=== PATIENT | male | born 1980 | race Caucasian/White ===

== ENCOUNTER 2021-07-13 15:55 | Emergency (ER) | payer SELFPAY ==
[2021-07-13 16:48] VITALS: BP 145/95; PULSE 77; TEMP 98.1; BMI 31.8
[2021-07-13] MEDS ORDERED: ACETAMINOPHEN 1000 MG/100 ML BAG IVPB ONE (16:48)
[2021-07-13] MEDS ORDERED: FAMOTIDINE 20 MG/50 ML IVPB 20 MG/50 ML MG IVPB ONE ×2 (16:58→17:29)
[2021-07-13] MEDS ORDERED: MAG HYDROX/AL HYDROX/SIMETH -MYLANTA- ORAL SUSPENSION PO ONE (16:58)
[2021-07-13] MEDS ORDERED: SODIUM CHLORIDE 0.9% 500 ML INFUS.BAG IV ONE (16:59)
[2021-07-13] MEDS ORDERED: ACETAMINOPHEN INJECTION 100 ML IVPB ONE (17:29)
[2021-07-13] MEDS ORDERED: MAG HYDROX/AL HYDROX/SIMETH 30 ML UNIT-DOSE CUP ONE (17:29)
[2021-07-13 18:35] LABS: BASO % 0.1 % (0-2.0); EOS % 0.1 % (0-4.5); HEMATOCRIT 44.1 % (35.4-49); HEMOGLOBIN 15.3 GM/dL (11.7-16.9); LYMPH % 6.7 % (8-40); MCH 31.6 pg (25.7-33.7); MCHC 34.8 g/dl (32.0-35.9); MEAN PLT VOLUME 8.8 fl (7.5-11.1); MONO % 5.9 % (3.8-10.2); NEUT % 87.2 % (42.8-82.8); PLATELET COUNT 238 10^3/uL (134-434); RBC 4.84 M/mm3 (4.00-5.60); RDW 12.7 % (11.9-15.9); WHITE BLOOD COUNT 12.2 K/mm3 (4.0-10.0)
[2021-07-13 18:47] LABS: CHLORIDE 104 mmol/L (98-107); SODIUM 138 mmol/L (136-145)
[2021-07-13 18:49] LABS: MAGNESIUM 2.2 mg/dL (1.8-2.4)
[2021-07-13 18:50] LABS: ALBUMIN 4.1 g/dl (3.4-5.0); ANION GAP 8 MMOL/L (8-16); BLOOD UREA NITROGEN 14.4 mg/dL (7-18); CO2 27 mmol/L (21-32); GLUCOSE,RANDOM 110 mg/dL (74-106); LIPASE 205 U/L (73-393)
[2021-07-13 18:52] LABS: CREATININE 1.3 mg/dL (0.55-1.3); SGOT/AST 68 U/L (15-37); SGPT/ALT 37 U/L (13-61)
[2021-07-13 18:54] LABS: TOT PROT 7.4 g/dl (6.4-8.2)
[2021-07-13 18:56] LABS: ALK PHOS 106 U/L (45-117)
[2021-07-13 19:31] LABS: ERYTHROCYTE SEDIMENTATION RATE 9 mm/hr (0-10)
== END 2021-07-13 20:46 | disposition home or self-care (01) ==
LOC: JER 15:55
PROC: 3E033GC Introduction of Other Therapeutic Substance into Peripheral Vein, Percutaneous Approach (ICD-10-PCS; principal; 2021-07-13)
DX: R07.9 Chest pain, unspecified (principal)
CPT/HCPCS: 36415; 71045-TC-FY; 80053; 82550; 83690; 83735; 84484; 85025; 85651; 86140; 93005; 93010; 99285-25

== ENCOUNTER 2022-03-11 08:36 | Inpatient (IN) | payer OTHER ==
[2022-03-11 08:49] VITALS: RESP 18
[2022-03-11] MEDS ORDERED: SODIUM CHLORIDE 0.9% 500 ML INFUS.BAG IV ONE (08:55)
[2022-03-11] MEDS ORDERED: KETOROLAC TROMETHAMINE 15 MG/ML VIAL IVPUSH ONE (08:55)
[2022-03-11] MEDS ORDERED: KETOROLAC TROMETHAMINE 15 MG/ML VIAL ONE (09:10)
[2022-03-11 09:14] LABS: BASO % 0.3 % (0-2.0); EOS % 0.1 % (0-4.5); HEMATOCRIT 47.4 % (35.4-49); HEMOGLOBIN 16.5 GM/dL (11.7-16.9); LYMPH % 5.1 % (8-40); MCH 32.5 pg (25.7-33.7); MCHC 34.9 g/dl (32.0-35.9); MEAN CELL VOLUME 93.3 fl (80-96); MEAN PLT VOLUME 8.3 fl (7.5-11.1); MONO % 6.1 % (3.8-10.2); NEUT % 88.4 % (42.8-82.8); PLATELET COUNT 288 10^3/uL (134-434); RBC 5.09 M/mm3 (4.00-5.60); RDW 13.2 % (11.9-15.9)
[2022-03-11 09:40] LABS: CHLORIDE 103 mmol/L (98-107); SODIUM 142 mmol/L (136-145)
[2022-03-11 09:43] LABS: ALBUMIN 4.5 g/dl (3.4-5.0); ANION GAP 11 MMOL/L (8-16); CALCIUM 9.4 mg/dL (8.5-10.1); CO2 29 mmol/L (21-32); GLUCOSE,RANDOM 107 mg/dL (74-106); MAGNESIUM 2.3 mg/dL (1.8-2.4)
[2022-03-11 09:44] LABS: BLOOD UREA NITROGEN 6.2 mg/dL (7-18)
[2022-03-11 09:45] LABS: SGOT/AST 72 U/L (15-37); SGPT/ALT 96 U/L (13-61)
[2022-03-11 09:48] LABS: TOT PROT 7.6 g/dl (6.4-8.2)
[2022-03-11 09:49] LABS: ALK PHOS 117 U/L (45-117)
[2022-03-11 09:55] LABS: LIPASE > 30000 U/L (73-393)
[2022-03-11] MEDS ORDERED: morphine CARPU-JECT 4 MG/1 ML DISP.SYRIN IVPUSH ONE (10:41)
[2022-03-11] MEDS ORDERED: ACETAMINOPHEN 1000 MG/100 ML BAG IVPB PRN (11:08)
[2022-03-11] MEDS: LACTATED RINGERS SOLUTION 1,000 ML IV SCH ×2 (11:13→23:21)
[2022-03-11] MEDS ORDERED: morphine SULFATE 4 MG/ML VIAL ONE (11:15)
[2022-03-11] MEDS ORDERED: LORazepam 2 MG/ML SDV VIAL IVPUSH PRN (11:40)
[2022-03-11 12:58] VITALS: BMI 30.4
[2022-03-11 14:19] LABS: CHOLESTEROL 251 mg/dL (50-200)
[2022-03-11 14:20] LABS: LDL CHOLESTEROL (ONLY SJRH) 155 mg/dL (5-100); TRIGLYCERIDES 295 mg/dL (0-150)
[2022-03-11 14:23] LABS: HDL CHOLESTEROL 51 mg/dL (40-60)
[2022-03-11 22:40] LABS: URINE APPEARANCE CLEAR; URINE BILIRUBIN NEGATIVE (NEGATIVE); URINE COLOR YELLOW; URINE GLUCOSE (UA) NEGATIVE (NEGATIVE); URINE KETONE TRACE (NEGATIVE); URINE LEUK ESTERASE NEGATIVE (NEGATIVE); URINE NITRITE NEGATIVE (NEGATIVE); URINE PROTEIN NEGATIVE (NEGATIVE)
[2022-03-12] MEDS: LACTATED RINGERS SOLUTION 1,000 ML IV SCH ×3 (06:06→19:47)
[2022-03-12] MEDS ORDERED: FOLIC ACID INJECTION - 1 MG, THIAMINE HCL 100 MG, MULTIVIT INJECTION ADULT 10 ML in SOD... IVPB ONE (09:00)
[2022-03-12 10:23] LABS: BASO % 0.3 % (0-2.0); EOS % 3.8 % (0-4.5); HEMATOCRIT 40.1 % (35.4-49); HEMOGLOBIN 13.7 GM/dL (11.7-16.9); LYMPH % 14.8 % (8-40); MCH 31.9 pg (25.7-33.7); MCHC 34.1 g/dl (32.0-35.9); MEAN CELL VOLUME 93.5 fl (80-96); MEAN PLT VOLUME 8.6 fl (7.5-11.1); MONO % 8.1 % (3.8-10.2); PLATELET COUNT 231 10^3/uL (134-434); RBC 4.28 M/mm3 (4.00-5.60); RDW 13.5 % (11.9-15.9)
[2022-03-12 10:46] LABS: CALCIUM 8.9 mg/dL (8.5-10.1)
[2022-03-12 10:47] LABS: MAGNESIUM 1.9 mg/dL (1.8-2.4)
[2022-03-12 10:48] LABS: CREATININE 0.9 mg/dL (0.55-1.3); PHOSPHOROUS 1.8 mg/dL (2.5-4.9)
[2022-03-12 10:49] LABS: BILIRUBIN,TOTAL 1.4 mg/dL (0.2-1)
[2022-03-12 10:50] LABS: TOT PROT 5.6 g/dl (6.4-8.2)
[2022-03-12] MEDS: THIAMINE HCL 100 MG TABLET (FP) PO SCH (10:52)
[2022-03-12] MEDS: MULTIVITAMINS (DAILY MVI) TABLET (FP) PO SCH (10:53)
[2022-03-12 11:10] LABS: ALBUMIN 3.2 g/dl (3.4-5.0)
[2022-03-12] MEDS ORDERED: LORazepam 2 MG/ML SDV VIAL IVPUSH PRN (16:11)
[2022-03-13 08:52] LABS: HEMATOCRIT 35.8 % (35.4-49); HEMOGLOBIN 12.4 GM/dL (11.7-16.9); MCH 32.3 pg (25.7-33.7); MCHC 34.7 g/dl (32.0-35.9); MEAN PLT VOLUME 8.6 fl (7.5-11.1); PLATELET COUNT 206 10^3/uL (134-434); RBC 3.84 M/mm3 (4.00-5.60); RDW 13.2 % (11.9-15.9); WHITE BLOOD COUNT 7.2 K/mm3 (4.0-10.0)
[2022-03-13] MEDS: MULTIVITAMINS (DAILY MVI) TABLET (FP) PO SCH (09:29)
[2022-03-13] MEDS: LACTATED RINGERS SOLUTION 1,000 ML IV SCH ×3 (09:29→21:31)
[2022-03-13] MEDS: THIAMINE HCL 100 MG TABLET (FP) PO SCH (09:29)
[2022-03-13 09:59] LABS: ALBUMIN 2.9 g/dl (3.4-5.0); BLOOD UREA NITROGEN 5.1 mg/dL (7-18)
[2022-03-13 10:00] LABS: CALCIUM 8.8 mg/dL (8.5-10.1)
[2022-03-13 10:02] LABS: CREATININE 0.8 mg/dL (0.55-1.3)
[2022-03-13 10:06] LABS: BILIRUBIN,TOTAL 0.9 mg/dL (0.2-1); TOT PROT 5.3 g/dl (6.4-8.2)
[2022-03-13] MEDS: PANTOPRAZOLE 40 MG TABLET PO SCH (14:55)
[2022-03-14] MEDS: LACTATED RINGERS SOLUTION 1,000 ML IV SCH ×2 (01:26→05:34)
[2022-03-14] MEDS: THIAMINE HCL 100 MG TABLET (FP) PO SCH (10:02)
[2022-03-14] MEDS: PANTOPRAZOLE 40 MG TABLET PO SCH (10:03)
[2022-03-14] MEDS: MULTIVITAMINS (DAILY MVI) TABLET (FP) PO SCH (10:03)
[2022-03-14 10:06] LABS: CALCIUM 8.5 mg/dL (8.5-10.1)
[2022-03-14 10:07] LABS: BLOOD UREA NITROGEN 5.2 mg/dL (7-18)
[2022-03-14 10:08] LABS: PHOSPHOROUS 2.5 mg/dL (2.5-4.9)
[2022-03-14 10:10] LABS: BILIRUBIN,TOTAL 0.9 mg/dL (0.2-1); CREATININE 0.8 mg/dL (0.55-1.3); TOT PROT 5.6 g/dl (6.4-8.2)
[2022-03-14 11:43] LABS: BASO % 1.4 % (0-2.0); EOS % 6.1 % (0-4.5); HEMATOCRIT 35.5 % (35.4-49); HEMOGLOBIN 12.5 GM/dL (11.7-16.9); MCH 32.8 pg (25.7-33.7); MCHC 35.2 g/dl (32.0-35.9); MEAN CELL VOLUME 93.2 fl (80-96); MEAN PLT VOLUME 8.6 fl (7.5-11.1); MONO % 7.8 % (3.8-10.2); NEUT % 65.7 % (42.8-82.8); PLATELET COUNT 199 10^3/uL (134-434); RBC 3.81 M/mm3 (4.00-5.60); RDW 13.2 % (11.9-15.9); WHITE BLOOD COUNT 6.6 K/mm3 (4.0-10.0)
[2022-03-14 12:27] VITALS: BP 118/73; PULSE 67; TEMP 98
== END 2022-03-14 15:00 | disposition home or self-care (01) | DRG 282 ==
LOC: JER 08:36 → JERBED 11:02 → J6S 12:01
PROVIDERS: ADMIT Internal Medicine; ATTEND Internal Medicine
DX: K85.20 Alcohol induced acute pancreatitis without necrosis or infection (principal); K80.20 Calculus of gallbladder without cholecystitis without obstruction; F10.20 Alcohol dependence, uncomplicated
CPT/HCPCS: 0241U-QW; 36415; 71045-TC-FY; 74176-TC; 76705-TC; 80053; 80061; 80307; 81003; 83036; 83690; 83735; 84100; 84443; 84484; 85025; 85027; 87040; 87086; 93005; 93010; 99285-25

== ENCOUNTER 2022-04-25 01:03 | Emergency (ER) | payer OTHER ==
[2022-04-25 01:20] VITALS: BP 130/80; PULSE 75; RESP 18; TEMP 97.6; BMI 27.1
[2022-04-25] MEDS ORDERED: morphine CARPU-JECT 2 MG/1 ML DISP.SYRIN IVPUSH ONE (01:20)
[2022-04-25] MEDS ORDERED: SODIUM CHLORIDE 0.9% 500 ML INFUS.BAG IV ONE (01:20)
[2022-04-25 01:43] LABS: BASO % 1.2 % (0-2.0); EOS % 2.2 % (0-4.5); HEMATOCRIT 45.6 % (35.4-49); HEMOGLOBIN 15.3 GM/dL (11.7-16.9); LYMPH % 36.6 % (8-40); MCH 30.7 pg (25.7-33.7); MCHC 33.6 g/dl (32.0-35.9); MEAN CELL VOLUME 91.3 fl (80-96); MEAN PLT VOLUME 8.7 fl (7.5-11.1); PLATELET COUNT 227 10^3/uL (134-434); RDW 12.9 % (11.9-15.9); WHITE BLOOD COUNT 5.7 K/mm3 (4.0-10.0)
[2022-04-25 02:04] LABS: ALBUMIN 3.8 g/dl (3.4-5.0); BLOOD UREA NITROGEN 10.5 mg/dL (7-18)
[2022-04-25 02:07] LABS: CREATININE 1.2 mg/dL (0.55-1.3)
[2022-04-25 02:08] LABS: BILIRUBIN,TOTAL 0.4 mg/dL (0.2-1); TOT PROT 6.9 g/dl (6.4-8.2)
== END 2022-04-25 02:49 | disposition home or self-care (01) ==
LOC: JER 01:03
PROC: 3E033NZ Introduction of Analgesics, Hypnotics, Sedatives into Peripheral Vein, Percutaneous Approach (ICD-10-PCS; principal; 2022-04-25)
DX: R10.13 Epigastric pain (principal)
CPT/HCPCS: 36415; 80053; 83690; 84484; 85025; 93005; 93010; 99285-25

== ENCOUNTER 2022-04-26 22:14 | Emergency (ER) | payer OTHER ==
[2022-04-26 22:38] VITALS: BP 116/84; PULSE 82; RESP 17; TEMP 99; BMI 27.1
[2022-04-27] MEDS ORDERED: ACETAMINOPHEN 325 MG TABLET (FP) PO ONE (02:14)
[2022-04-27] MEDS ORDERED: ACETAMINOPHEN 325 MG TABLET (FP) ONE (02:21)
[2022-04-27 02:50] LABS: BASO % 0.4 % (0-2.0); EOS % 1.2 % (0-4.5); HEMATOCRIT 45.6 % (35.4-49); HEMOGLOBIN 15.4 GM/dL (11.7-16.9); LYMPH % 21.8 % (8-40); MCH 30.6 pg (25.7-33.7); MCHC 33.8 g/dl (32.0-35.9); MEAN CELL VOLUME 90.6 fl (80-96); MONO % 10.1 % (3.8-10.2); NEUT % 66.5 % (42.8-82.8); PLATELET COUNT 241 10^3/uL (134-434); RBC 5.03 M/mm3 (4.00-5.60); RDW 12.5 % (11.9-15.9); WHITE BLOOD COUNT 7.1 K/mm3 (4.0-10.0)
[2022-04-27 03:17] LABS: CALCIUM 9.3 mg/dL (8.5-10.1)
[2022-04-27 03:18] LABS: BLOOD UREA NITROGEN 7.7 mg/dL (7-18)
[2022-04-27 03:21] LABS: CREATININE 1.1 mg/dL (0.55-1.3)
[2022-04-27 03:22] LABS: BILIRUBIN,TOTAL 4.6 mg/dL (0.2-1); TOT PROT 7.1 g/dl (6.4-8.2)
== END 2022-04-27 04:21 | disposition left against medical advice (07) ==
LOC: JER 22:14
DX: R10.13 Epigastric pain (principal)
CPT/HCPCS: 36415; 80053; 83690; 85025; 99283-25

== ENCOUNTER 2022-04-27 08:28 | Inpatient (IN) | payer OTHER ==
[2022-04-27 08:32] VITALS: BMI 27.1
[2022-04-27] MEDS ORDERED: ACETAMINOPHEN 1000 MG/100 ML BAG IVPB ONE (10:10)
[2022-04-27] MEDS ORDERED: ONDANSETRON 4 MG/2 ML VIAL IVPUSH ONE (10:11)
[2022-04-27] MEDS ORDERED: LACTATED RINGERS SOLUTION 1000 ML INFUS.BAG IV ONE (10:15)
[2022-04-27] MEDS ORDERED: ACETAMINOPHEN INJECTION 100 ML IVPB ONE (12:12)
[2022-04-27] MEDS ORDERED: ONDANSETRON 4 MG/2 ML VIAL ONE (12:12)
[2022-04-27 13:29] LABS: BASO % 0.1 % (0-2.0); EOS % 0.1 % (0-4.5); HEMATOCRIT 49.6 % (35.4-49); HEMOGLOBIN 16.2 GM/dL (11.7-16.9); LYMPH % 5.4 % (8-40); MCH 30.2 pg (25.7-33.7); MCHC 32.8 g/dl (32.0-35.9); MEAN CELL VOLUME 92.3 fl (80-96); MEAN PLT VOLUME 9.5 fl (7.5-11.1); MONO % 5.7 % (3.8-10.2); NEUT % 88.7 % (42.8-82.8); PLATELET COUNT 236 10^3/uL (134-434); RBC 5.37 M/mm3 (4.00-5.60); RDW 12.8 % (11.9-15.9); WHITE BLOOD COUNT 11.1 K/mm3 (4.0-10.0)
[2022-04-27 13:58] LABS: CALCIUM 10.4 mg/dL (8.5-10.1)
[2022-04-27 13:59] LABS: ALBUMIN 4.2 g/dl (3.4-5.0); BLOOD UREA NITROGEN 8.9 mg/dL (7-18)
[2022-04-27 14:02] LABS: BILIRUBIN,DIRECT 2.7 mg/dL (0.0-0.2)
[2022-04-27 14:04] LABS: BILIRUBIN,TOTAL 6.9 mg/dL (0.2-1); TOT PROT 7.5 g/dl (6.4-8.2)
[2022-04-27 14:14] LABS: CREATININE 1.2 mg/dL (0.55-1.3)
[2022-04-27] MEDS ORDERED: CEFTRIAXONE 1 MG in DEXTROSE 5%-WATER - 50 ML IVPB ONE (14:49)
[2022-04-27] MEDS ORDERED: LACTATED RINGERS SOLUTION 1,000 ML/1,000 ML INFUS.BAG IV SCH ×3 (15:00→18:45)
[2022-04-27] MEDS ORDERED: PIPERACILLIN/TAZOB 3.375 GM 3.375 GM in DEXTROSE 5%-WATER - 50 ML IVPB SCH ×2 (15:00→18:00)
[2022-04-27] MEDS: PIPERACILLIN/TAZOB 3.375 GM 3.375 GM in DEXTROSE 5%-WATER - 50 ML IVPB SCH (15:00)
[2022-04-27] MEDS ORDERED: PIPERACILLIN/TAZOB 4.5 GM 4.5 GM/100 ML BAG IVPB ONE (15:04)
[2022-04-27] MEDS ORDERED: PIPERACILLIN/TAZOB 3.375 GM 3.375 GM/50 ML BAG IVPB ONE (15:17)
[2022-04-27] MEDS ORDERED: FENTANYL CITRATE/PF 50 MCG/ML VIAL ONE ×2 (15:46→15:48)
[2022-04-27] MEDS ORDERED: INDOMETHACIN 50 MG RECTAL SUPPOSITORY PR ONE (16:00)
[2022-04-27] MEDS ORDERED: IOHEXOL 300 MG/ML INFUS..BTL IV ONE (16:00)
[2022-04-27] MEDS ORDERED: LACTATED RINGERS SOLUTION 1,000 ML IV SCH ×2 (16:00→16:45)
[2022-04-27 18:42] LABS: INR 1.14 (0.83-1.09); PROTHROMBIN TIME (PATIENT) 13.1 SEC (9.7-13.0)
[2022-04-27] MEDS ORDERED: CEFTRIAXONE 1 GM in DEXTROSE 5%-WATER - 50 ML IVPB ONE (19:15)
[2022-04-27] MEDS ORDERED: ACETAMINOPHEN 325 MG TABLET (FP) PO PRN (22:34)
[2022-04-27] MEDS ORDERED: MELATONIN 5 MG TABLETS PO ONE (22:36)
[2022-04-27] MEDS: ACETAMINOPHEN 1000 MG/100 ML BAG IVPB PRN (23:16)
[2022-04-28] MEDS ORDERED: LACTATED RINGERS SOLUTION 1,000 ML/1,000 ML INFUS.BAG IV SCH
[2022-04-28] MEDS: PIPERACILLIN/TAZOB 3.375 GM 3.375 GM in DEXTROSE 5%-WATER - 50 ML IVPB SCH ×3 (02:12→18:41)
[2022-04-28] MEDS: ONDANSETRON 4 MG/2 ML VIAL IVPUSH PRN (02:24)
[2022-04-28] MEDS: ACETAMINOPHEN 1000 MG/100 ML BAG IVPB PRN (09:29)
[2022-04-28 11:38] LABS: BASO % 0.2 % (0-2.0); EOS % 0.4 % (0-4.5); HEMATOCRIT 39.9 % (35.4-49); HEMOGLOBIN 13.5 GM/dL (11.7-16.9); LYMPH % 13.3 % (8-40); MCH 30.4 pg (25.7-33.7); MCHC 33.9 g/dl (32.0-35.9); MEAN CELL VOLUME 89.6 fl (80-96); MEAN PLT VOLUME 8.7 fl (7.5-11.1); MONO % 9.4 % (3.8-10.2); NEUT % 76.7 % (42.8-82.8); PLATELET COUNT 192 10^3/uL (134-434); RBC 4.46 M/mm3 (4.00-5.60); RDW 12.9 % (11.9-15.9); WHITE BLOOD COUNT 10.7 K/mm3 (4.0-10.0)
[2022-04-28 12:09] LABS: BLOOD UREA NITROGEN 9.1 mg/dL (7-18); MAGNESIUM 1.9 mg/dL (1.8-2.4)
[2022-04-28 12:11] LABS: BILIRUBIN,DIRECT 0.7 mg/dL (0.0-0.2); CREATININE 0.9 mg/dL (0.55-1.3); PHOSPHOROUS 2.5 mg/dL (2.5-4.9); TOT PROT 5.8 g/dl (6.4-8.2)
[2022-04-28 12:14] LABS: BILIRUBIN,TOTAL 2.2 mg/dL (0.2-1)
[2022-04-28 12:15] LABS: ALBUMIN 3.3 g/dl (3.4-5.0); CALCIUM 8.4 mg/dL (8.5-10.1)
[2022-04-28] MEDS ORDERED: POTASSIUM CHLORIDE TABS 20 MEQ TABLET.ER (FP) PO ONE (14:15)
[2022-04-28] MEDS: LACTATED RINGERS SOLUTION 1,000 ML/1,000 ML INFUS.BAG IV SCH (14:26)
[2022-04-28] MEDS: HYDROmorphone HCl 2 MG/ML VIAL IVPUSH PRN (18:40)
[2022-04-28] MEDS ORDERED: ACETAMINOPHEN 1000 MG/100 ML BAG IVPB ONE (20:59)
[2022-04-29] MEDS: HYDROmorphone HCl 2 MG/ML VIAL IVPUSH PRN ×2 (00:32→06:04)
[2022-04-29] MEDS: LACTATED RINGERS SOLUTION 1,000 ML/1,000 ML INFUS.BAG IV SCH ×3 (01:00→16:00)
[2022-04-29] MEDS: PIPERACILLIN/TAZOB 3.375 GM 3.375 GM in DEXTROSE 5%-WATER - 50 ML IVPB SCH ×3 (02:11→17:33)
[2022-04-29] MEDS: HYDROmorphone HCl 2 MG/ML VIAL IVPB PRN ×2 (09:03→20:43)
[2022-04-29 11:08] LABS: BASO % 0.6 % (0-2.0); EOS % 1.4 % (0-4.5); HEMATOCRIT 40.7 % (35.4-49); HEMOGLOBIN 13.5 GM/dL (11.7-16.9); LYMPH % 13.5 % (8-40); MCH 30.3 pg (25.7-33.7); MEAN CELL VOLUME 91.6 fl (80-96); MEAN PLT VOLUME 9.4 fl (7.5-11.1); MONO % 9.9 % (3.8-10.2); NEUT % 74.6 % (42.8-82.8); PLATELET COUNT 184 10^3/uL (134-434); RBC 4.45 M/mm3 (4.00-5.60); RDW 12.6 % (11.9-15.9); WHITE BLOOD COUNT 11.2 K/mm3 (4.0-10.0)
[2022-04-29 11:30] LABS: ALBUMIN 3.2 g/dl (3.4-5.0); CALCIUM 8.5 mg/dL (8.5-10.1)
[2022-04-29 11:31] LABS: ALBUMIN 3.2 g/dl (3.4-5.0); MAGNESIUM 1.9 mg/dL (1.8-2.4)
[2022-04-29 11:33] LABS: BILIRUBIN,DIRECT 0.5 mg/dL (0.0-0.2)
[2022-04-29 11:35] LABS: BILIRUBIN,TOTAL 1.5 mg/dL (0.2-1); BILIRUBIN,TOTAL 1.6 mg/dL (0.2-1); CREATININE 0.8 mg/dL (0.55-1.3); PHOSPHOROUS 1.9 mg/dL (2.5-4.9); TOT PROT 5.9 g/dl (6.4-8.2)
[2022-04-29] MEDS: ONDANSETRON 4 MG/2 ML VIAL IVPUSH PRN (18:28)
[2022-04-29] MEDS ORDERED: MELATONIN 5 MG TABLETS PO ONE (20:37)
[2022-04-30] MEDS: PIPERACILLIN/TAZOB 3.375 GM 3.375 GM in DEXTROSE 5%-WATER - 50 ML IVPB SCH ×3 (01:05→10:07)
[2022-04-30] MEDS ORDERED: BUPIVACAINE HCL/PF 0.25% (2.5MG/ML) 10 ML VIAL ONE (07:32)
[2022-04-30] MEDS ORDERED: MIDAZOLAM HCL 2 MG/2 ML SINGLE DOSE VIAL ONE (07:46)
[2022-04-30] MEDS ORDERED: PROPOFOL 20 ML ONE ×2 (07:46→08:30)
[2022-04-30] MEDS ORDERED: ROCURONIUM BROMIDE 50 MG/5 ML SYRINGE ONE ×2 (07:46→08:59)
[2022-04-30] MEDS ORDERED: FENTANYL CITRATE/PF 50 MCG/ML VIAL ONE ×2 (07:46→11:00)
[2022-04-30] MEDS ORDERED: LIDOCAINE HCL/PF 2% SDV 5ML VIAL ONE (08:25)
[2022-04-30] MEDS ORDERED: ONDANSETRON 4 MG/2 ML VIAL ONE ×2 (08:57→09:52)
[2022-04-30] MEDS ORDERED: DEXAMETHASONE SOD PHOSPHATE 4 MG/1 ML VIAL ONE (08:57)
[2022-04-30] MEDS ORDERED: HYDROmorphone HCl 2 MG/ML VIAL ONE (09:03)
[2022-04-30] MEDS ORDERED: BUPIVACAINE HCL/PF 0.25% (2.5MG/ML) 10 ML VIAL IJ ONE ×2 (09:52)
[2022-04-30] MEDS ORDERED: ONDANSETRON 4 MG/2 ML VIAL IVPUSH PRN ×3 (10:24→10:52)
[2022-04-30] MEDS ORDERED: LACTATED RINGERS SOLUTION 1,000 ML IV SCH ×2 (10:30→10:52)
[2022-04-30] MEDS ORDERED: oxyCODONE HCL 5 MG TABLET PO PRN ×2 (10:51→11:26)
[2022-04-30] MEDS ORDERED: LACTATED RINGERS SOLUTION 1,000 ML/1,000 ML INFUS.BAG IV SCH (10:52)
[2022-04-30] MEDS ORDERED: HYDROmorphone HCl 2 MG/ML VIAL IVPB PRN (10:52)
[2022-04-30] MEDS: LACTATED RINGERS SOLUTION 1,000 ML IV SCH ×2 (11:45→11:55)
[2022-04-30 12:01] VITALS: RESP 16
[2022-04-30 12:09] VITALS: BP 146/82; PULSE 88; TEMP 97.4
[2022-04-30] MEDS ORDERED: PIPERACILLIN/TAZOB 3.375 GM 3.375 GM in DEXTROSE 5%-WATER - 50 ML IVPB ONE (12:30)
[2022-04-30 14:59] LABS: HEMATOCRIT 41.1 % (35.4-49); HEMOGLOBIN 13.6 GM/dL (11.7-16.9); MCH 30.1 pg (25.7-33.7); MEAN CELL VOLUME 91.1 fl (80-96); MEAN PLT VOLUME 9.8 fl (7.5-11.1); PLATELET COUNT 207 10^3/uL (134-434); RBC 4.51 M/mm3 (4.00-5.60); RDW 12.7 % (11.9-15.9); WHITE BLOOD COUNT 10.7 K/mm3 (4.0-10.0)
[2022-04-30 15:25] LABS: ALBUMIN 3.4 g/dl (3.4-5.0); BLOOD UREA NITROGEN 5.6 mg/dL (7-18); MAGNESIUM 2.2 mg/dL (1.8-2.4)
[2022-04-30 15:26] LABS: ALBUMIN 3.4 g/dl (3.4-5.0)
[2022-04-30 15:27] LABS: PHOSPHOROUS 2.3 mg/dL (2.5-4.9)
[2022-04-30 15:28] LABS: CREATININE 0.8 mg/dL (0.55-1.3)
[2022-04-30 15:29] LABS: BILIRUBIN,DIRECT 0.5 mg/dL (0.0-0.2); BILIRUBIN,TOTAL 0.9 mg/dL (0.2-1); TOT PROT 6.6 g/dl (6.4-8.2)
[2022-04-30 15:31] LABS: TOT PROT 6.6 g/dl (6.4-8.2)
[2022-04-30] MEDS ORDERED: ACETAMINOPHEN 1000 MG/100 ML BAG IVPB PRN ×2 (16:30)
[2022-04-30] MEDS ORDERED: PIPERACILLIN/TAZOB 3.375 GM 3.375 GM in DEXTROSE 5%-WATER - 50 ML IVPB SCH (18:00)
[2022-04-30] MEDS ORDERED: DOCUSATE SODIUM 100 MG CAPSULE (FP) PO SCH (22:00)
== END 2022-04-30 16:47 | disposition left against medical advice (07) | DRG 493 ==
LOC: JER 08:28 → SUATTDRO 14:53 → JASUSAT 14:53 → J5S 21:15 → JASUSAT 04-28 15:15 → J6S 04-29 11:56
PROVIDERS: ADMIT Internal Medicine; ATTEND Internal Medicine
PROC: 0F798DZ Dilation of Common Bile Duct with Intraluminal Device, Via Natural or Artificial Opening Endoscopic (ICD-10-PCS; 2022-04-27)
PROC: BF14YZZ Fluoroscopy of Gallbladder, Bile Ducts and Pancreatic Ducts using Other Contrast (ICD-10-PCS; 2022-04-27)
PROC: 0FC98ZZ Extirpation of Matter from Common Bile Duct, Via Natural or Artificial Opening Endoscopic (ICD-10-PCS; 2022-04-27)
PROC: 0W3R4ZZ Control Bleeding in Genitourinary Tract, Percutaneous Endoscopic Approach (ICD-10-PCS; 2022-04-30)
PROC: 0FT44ZZ Resection of Gallbladder, Percutaneous Endoscopic Approach (ICD-10-PCS; principal; 2022-04-30 08:00)
DX: K85.10 Biliary acute pancreatitis without necrosis or infection (principal); R18.8 Other ascites; F10.20 Alcohol dependence, uncomplicated; K80.50 Calculus of bile duct without cholangitis or cholecystitis without obstruction; K85.20 Alcohol induced acute pancreatitis without necrosis or infection; J45.909 Unspecified asthma, uncomplicated; K76.0 Fatty (change of) liver, not elsewhere classified; R00.1 Bradycardia, unspecified; F17.210 Nicotine dependence, cigarettes, uncomplicated
CPT/HCPCS: 0241U-QW; 36415; 76000-TC-FY; 76705-TC; 80048; 80053; 80076; 80307; 82248; 83690; 83735; 84100; 85025; 85027; 85610; 86850; 86900; 86901; 87040; 88304-TC; 93005; 93010; 94760; 99285-25